=== PATIENT | male | born 1985 | race Caucasian/White ===

== ENCOUNTER 2021-07-29 06:16 | Day surgery (SDC) | payer OTHER, SELFPAY ==
[~2021-07-29] VITALS: Ht 177.8 cm; Wt 109.3 kg
[2021-07-29] MEDS ORDERED: SIMETHICONE 40 MG/0.6 ML ML ONE (07:28)
[2021-07-29] MEDS ORDERED: MIDAZOLAM HCL 5 MG/5 ML VIAL ONE (07:28)
[2021-07-29] MEDS ORDERED: MEPERIDINE 100 MG INJ. 100 MG/ML VIAL ONE (07:28)
[2021-07-29] MEDS ORDERED: BENZOCAINE 20% 0.5mL UD SPRAY MM ONE (07:34)
[2021-07-29 13:32] VITALS: BP_SYST 121
== END 2021-07-29 08:55 | disposition home or self-care (01) ==
LOC: SDS 06:16 → SMU 06:17 → SDS 08:55
PROVIDERS: ATTEND Internal Medicine Gastroenterology
DX: K92.1 Melena (principal); K52.9 Noninfective gastroenteritis and colitis, unspecified; K21.00 Gastro-esophageal reflux disease with esophagitis, without bleeding; K29.70 Gastritis, unspecified, without bleeding; K44.9 Diaphragmatic hernia without obstruction or gangrene; D12.3 Benign neoplasm of transverse colon; K64.4 Residual hemorrhoidal skin tags; K64.8 Other hemorrhoids; K57.30 Diverticulosis of large intestine without perforation or abscess without bleeding; K29.50 Unspecified chronic gastritis without bleeding; Z79.899 Other long term (current) drug therapy
CPT/HCPCS: 43239; 45380; 88305; 88312; 88313; 99152; 99153; G0378; J2175; J2250; 45385